=== PATIENT | male | born 1955 | race Caucasian/White ===

== ENCOUNTER 2019-01-03 10:42 | Emergency (ER) | payer SELFPAY ==
[~2019-01-03] VITALS: Wt 70.0 kg
[~2019-01-03 10:42] MED LIST: BACI28.34 TOP; CEPH-443 PO
[2019-01-03 13:08] VITALS: BP 128/78; PULSE 88; RESP 18
== END 2019-01-03 13:08 | disposition home or self-care (01) ==
LOC: FTE 10:42
DX: S61.412A Laceration without foreign body of left hand, initial encounter (principal); W26.0XXA Contact with knife, initial encounter; Y92.89 Other specified places as the place of occurrence of the external cause